=== PATIENT | male | born 2000 | race Caucasian/White ===

== ENCOUNTER 2021-07-02 22:28 | Emergency (ER) | payer OTHER | END 2021-07-02 23:41 | disposition home or self-care (01) | LOC: FER 22:28 | DX: S61.214A Laceration without foreign body of right ring finger without damage to nail, initial encounter (principal); Z23 Encounter for immunization; W26.8XXA Contact with other sharp object(s), not elsewhere classified, initial encounter; Y92.89 Other specified places as the place of occurrence of the external cause; Y99.0 Civilian activity done for income or pay | CPT/HCPCS: 90471; 90715 ==